=== PATIENT | male | born 1955 | race Caucasian/White ===

== ENCOUNTER 2020-12-07 14:11 | Emergency (ER) | payer MEDICARE, SELFPAY ==
--- NOTE | ~2020-12-07 | CT_ITS ---
EXAMINATION: CT ANGIOGRAM OF THE CHEST WITH AND WITHOUT CONTRAST (CT PULMONARY ANGIOGRAM FOR PE) CLINICAL INFORMATION: Pain COMPARISON: None TECHNIQUE: Prior to contrast administration, noncontrast localization images were obtained. Subsequently, multidetector volumetric imaging was performed from the thoracic inlet to below the diaphragms following the administration of 58 mL Omnipaque 350 intravenous contrast. No contrast reaction reported Sagittal, coronal, and MIP oblique sagittal reformatted images were obtained on the CT workstation, uploaded to PACS, and reviewed. This CT examination was performed using dose optimization techniques as appropriate, variously including the following: *Automated exposure control *Adjustment of mA and/or kV according to patient size (this includes techniques or standardized protocols for targeted exams where dose is matched to indication/reason for exam; i.e. extremities or head) *Use of iterative reconstruction technique Total exam dose-length product 391 mGy-cm FINDINGS: QUALITY OF STUDY/CONTRAST BOLUS: Suboptimal. The IV contrast bolus is too late. The region of interest for triggering the study was positioned too low. The aorta is contrast opacified and there is essentially no contrast opacification of the main pulmonary artery, density 30 Hounsfield units. PULMONARY ARTERIES: Unopacified. THORACIC AORTA: The thoracic aorta is normal in caliber. No aneurysm or dissection. There is conventional aortic arch anatomy. LUNG: Biapical pleural-parenchymal scarring is present. Mild emphysema. PLEURA: No pleural effusion or pneumothorax. MEDIASTINUM: Normal heart size. No pericardial effusion. No hilar or mediastinal lymphadenopathy. No evidence of septal bowing or right heart strain. CHEST WALL/AXILLA: No axillary or internal mammary lymphadenopathy. OSSEOUS STRUCTURES: No acute or suspicious osseous abnormality. UPPER ABDOMEN: Several well-circumscribed low density lesions are seen within the liver, likely simple cysts. There are surgical clips in the gallbladder fossa consistent with prior cholecystectomy. No adrenal mass. No reflux of contrast into the hepatic veins to suggest elevated right heart pressures. CT/CT angio chest PE protocol IMPRESSION: Nondiagnostic study. There is no contrast opacification of the pulmonary arteries to allow for assessment for pulmonary emboli. The study should be repeated if clinically indicated. Normal caliber thoracic aorta. No aneurysm or dissection seen. Biapical pleural-parenchymal scarring. VTE: indeterminate
[2020-12-07 14:18] VITALS: BP 166/85; PULSE 84; RESP 18; TEMP 36.9; O2SAT 100
--- NOTE | 2020-12-07 14:23 | ED.EXTPRO ---
HPI - Extremity Problem General Chief complaint: Extremity Injury, Upper Stated complaint: R ARM/SHOULDER PAINX 1 WK Time Seen by Provider: 12/07/20 14:22 Source: patient Mode of arrival: ambulatory Limitations: no limitations History of Present Illness HPI Narrative: 65-year-old male who denies any significant past medical history states he has had 1 week of pain that is at the superior anchor of the scapula that has been present for the past 1 week with no specific injury. States started a week ago he sort of woke up with that feels like he has a bulge in the area so he went to [facility] he had x-ray of his cervical spine and right shoulder told it might be steroids he subsequently was given muscle relaxants story states he took the steroids without much relief he was afraid to take the steroids because he is due for his 2nd COVID vaccination and he knows not to take steroids prior to this however the pain has become more severe with movement of the right arm and from the scapula angle will shoot to the right shoulder. States that pain became unbearable today. He denies any fever, swelling of the extremities, numbness or weakness of the hand, lower back pain, neck pain or headache. Denies any chest pain or exertional dyspnea. No recent URI. MD Complaint: other (Upper back pain) Onset (ago): week(s) Pain Consistency: constant (Improved with position worsened with certain movements) Location: right Quality: aching Relieving factors: immobilization (Initially got better with immobilization now just hurts continuously) Exacerbating factors: nothing Related Data Previous Rx's Medication Instructions Recorded cyclobenzaprine 5 mg PO TID PRN #14 tab 12/07/20 oxycodone 5 mg PO Q8H PRN 3 Days #10 tab 12/07/20 Allergies Allergy/AdvReac Type Severity Reaction Status Date / Time No Known Allergies Allergy Verified 12/07/20 14:22 Review of Systems Review of Systems: Constitutional: No Weight loss, No Fever, No Chills, No Night Sweats, No Fatigue, No Malaise ENT/Mouth: No Hearing loss, No Ear Pain, No Nasal Congestion, No Sinus Pain, No Hoarseness, No sore throat, No Rhinorrhea, No Swallowing Difficulty Eyes: No Eye Pain, No Swelling, No Redness, No Foreign Body, No Discharge, No Vision Changes Cardiovascular: No Chest Pain, No SOB, No Dyspnea on Exertion, No Orthopnea, No Edema, No Palpitations Respiratory: No Cough, No Sputum, No Wheezing, No Smoke Exposure, No Dyspnea Gastrointestinal: No Nausea, No Vomiting, No Diarrhea, No Constipation, No abdominal Pain, No Hematochezia, No Melena Genitourinary: No Dysuria, No Urinary Frequency, No Hematuria, No Urinary Incontinence, No Urgency, No Flank Pain, No Urinary Flow Changes, No Hesitancy Musculoskeletal: No joint pain, No Myalgias, No Joint Swelling, As noted per HPI Skin: No Skin Lesions, No rash Neuro: No Weakness, No Numbness, No Paresthesias, No Loss of Consciousness, No Dizziness, No Headache Psych: No Anxiety/Panic, No Depression, No Social Issues Heme/Lymph: No Bruising, No Bleeding,No Lymphadenopathy Endocrine: No Polyuria, No Polydipsia, No Temperature Intolerance Yes all other systems are reviewed and are negative COUNT INCLUDES THE [facility] Past Medical History Medical History Arthritis Social History Social History Advance Directives: No Advance Directives Information Provided: No Physical Exam Vital Signs: Vital Signs: Last Vital Signs Temp 98.4 F 12/07/20 14:18 Pulse 66 12/07/20 16:50 Resp 18 12/07/20 16:50 BP 161/76 H 12/07/20 16:50 Pulse Ox 100 12/07/20 16:50 Body Mass Index 20.0 Reviewed Const: General: cooperative and other (Appears uncomfortable right shoulder slightly tilted down. Grimacing); No intoxicated appearing Nutritional Appearance: average body habitus Orientation/consciousness: patient oriented x3 HENMT: Head: Yes normal to inspection Ears: hearing grossly normal bilaterally Eyes: General: appearance normal, both eyes and all related structures Visual Correa: normal visual correa by confrontation Neck: Neck: Yes normal visual inspection, No positive Brudzinski's sign, No positive Kernig's sign and No tender Thyroid: Thyroid normal Chest: Chest palpation & inspection: normal inspection of the chest Resp: Effort & Inspection: normal respiratory effort Auscultation: clear to auscultation bilaterally Cardio: Jugular venous distension: no JVD Rhythm: regular rhythm Heart sounds: S1 normal heart sound present and S2 normal heart sound present GI: Inspection: Yes normal to inspection Palpation (GI): Soft to palpation Percussion: Yes normal to percussion Auscultation: normal bowel sounds : General: Yes no CVA tenderness Back/Spine/Pelvis: Back: no CVA tenderness Cervical Spine: cervical ROM normal Thoracic/Lumbar Spine: thoracic and lumbar spine normal to inspection, No mass, paraspinal muscle tenderness (Directly at and inferior to the angle of the right scapula and paraspinous ) on the right and other (No midline tender palpation, no step-off.) Skin: General skin exam: no rashes or lesions noted Neuro: General: patient oriented x3 Extrem: General: Yes normal to inspection Course Course Course Narrative: 65-year-old male who reports he is relatively her healthy and very active suddenly having right-sided upper back pain over the right scapular region which he has no prior history and is very active walks several miles a day has had follow-up at Orthopedics a week ago given muscle relaxants and steroids which she has reluctantly not taking due to COVID-19 vaccination appearing relatively uncomfortable though exam is strongly suspicious for musculoskeletal etiology given severity will check labs, EKG CTA chest as to make sure this is not referred pain. Reevaluation(s) Reevaluation #1: Feels better after IV morphine and Zofran. Labs overall stable. CT of the chest without acute findings. Will discharge with short course analgesia encourage muscle relaxant and steroid use and follow-up. MDM - Extremity (Nontraumatic) Medical Records Attestation: I reviewed the patient's medical records. Medical records narrative: Medical records requested Lab Data Result diagrams: 12/07/20 15:06 12/07/20 15:06 Labs: Lab Results 12/07/20 12/07/20 12/07/20 Range/Units 15:06 15:06 15:06 WBC 10.3 (4.8-10.8) X10*3/uL RBC 4.47 L (4.60-5.80) X10*6/uL Hgb 14.7 (14.0-18.0) g/dl Hct 43.0 (42-52) % MCV 96.2 (80-98) fL MCH 32.9 (27.0-33.0) pg MCHC 34.2 (31.0-36.0) g/dl RDW 12.7 (11.0-16.0) % Plt Count 180 (160-400) X10*3/uL MPV 10.6 (9.4-12.4) fL Immature Gran % (Auto) 0.3 (0.0-0.4) % Neut % (Auto) 51.4 (45-73) % Lymph % (Auto) 36.2 (20-40) % Granite % (Auto) 7.5 (2-11) % Eos % (Auto) 4.1 H (0-4) % Baso % (Auto) 0.5 (0-2) % Lymph # (Auto) 3.7 (1.2-4.9) X10*3/uL Granite # (Auto) 0.8 (0.1-1.2) X10*3/uL Eos # (Auto) 0.4 (0.0-0.4) X10*3/uL Baso # (Auto) 0.1 (0.0-0.2) X10*3/uL Abs Immat Gran (auto) 0.03 (0.00-0.03) X10*3/uL Absolute Neuts (auto) 5.3 (2.0-8.3) X10*3/uL Absolute Nucleated RBC 0.000 (0.0-0.012) X10*3/uL Nucleated RBC % (auto) 0.0 (0.0-0.2) /100WBC PT 12.0 (10.8-13.0) SEC INR 1.0 (0.9-1.1) APTT 32.0 (24.1-38.0) SEC Sodium 139 (135-145) mmol/L Potassium 4.9 (3.3-5.1) mmol/L Chloride 102 (96-108) mmol/L Carbon Dioxide 28 (22-29) mmol/L Anion Gap 14 (12-20) BUN 18 H (9-16) mg/dL Creatinine 0.84 (0.5-1.4) mg/dL Estim Creat Clear Calc 76.6 Estimated GFR > 60 Random Glucose 139 H (60-115) mg/dL Calcium 8.7 (8.4-10.2) mg/dL Total Bilirubin 0.5 (0.0-1.0) mg/dL AST 19 (5-37) U/L ALT 14 (0-40) U/L Alkaline Phosphatase 82 (39-117) U/L Troponin I High Sens (<3.5-35.0) ng/L Total Protein 6.9 (6.5-8.0) g/dL Albumin 4.3 (3.5-5.0) g/dL 12/07/20 Range/Units 15:06 WBC (4.8-10.8) X10*3/uL RBC (4.60-5.80) X10*6/uL Hgb (14.0-18.0) g/dl Hct (42-52) % MCV (80-98) fL MCH (27.0-33.0) pg MCHC (31.0-36.0) g/dl RDW (11.0-16.0) % Plt Count (160-400) X10*3/uL MPV (9.4-12.4) fL Immature Gran % (Auto) (0.0-0.4) % Neut % (Auto) (45-73) % Lymph % (Auto) (20-40) % Granite % (Auto) (2-11) % Eos % (Auto) (0-4) % Baso % (Auto) (0-2) % Lymph # (Auto) (1.2-4.9) X10*3/uL Granite # (Auto) (0.1-1.2) X10*3/uL Eos # (Auto) (0.0-0.4) X10*3/uL Baso # (Auto) (0.0-0.2) X10*3/uL Abs Immat Gran (auto) (0.00-0.03) X10*3/uL Absolute Neuts (auto) (2.0-8.3) X10*3/uL Absolute Nucleated RBC (0.0-0.012) X10*3/uL Nucleated RBC % (auto) (0.0-0.2) /100WBC PT (10.8-13.0) SEC INR (0.9-1.1) APTT (24.1-38.0) SEC Sodium (135-145) mmol/L Potassium (3.3-5.1) mmol/L Chloride (96-108) mmol/L Carbon Dioxide (22-29) mmol/L Anion Gap (12-20) BUN (9-16) mg/dL Creatinine (0.5-1.4) mg/dL Estim Creat Clear Calc Estimated GFR Random Glucose (60-115) mg/dL Calcium (8.4-10.2) mg/dL Total Bilirubin (0.0-1.0) mg/dL AST (5-37) U/L ALT (0-40) U/L Alkaline Phosphatase (39-117) U/L Troponin I High Sens < 3.5 (<3.5-35.0) ng/L Total Protein (6.5-8.0) g/dL Albumin (3.5-5.0) g/dL Imaging Data CTA chest: Radiologist's impression: [address] [id number] Scan ReportSigned Patient: Carter Sheppard [facility]#: [id number]: 1955cct:[id number]/Sex: 65 / MADM Date: 12/07/20Loc: [address]: Ordering Physician: Thony Nieto NP Date of Service: 12/07/20 Procedure(s): CT angio chest PE protocol Accession Number(s): [id number] cc: Thony Nieto NP~ EXAMINATION: CT ANGIOGRAM OF THE CHEST WITH AND WITHOUT CONTRAST (CT PULMONARY ANGIOGRAM FOR PE) CLINICAL INFORMATION: Pain COMPARISON: None TECHNIQUE: Prior to contrast administration, noncontrast localization images were obtained. Subsequently, multidetector volumetric imaging was performed from the thoracic inlet to below the diaphragms following the administration of 58 mL Omnipaque 350 intravenous contrast. No contrast reaction reported Sagittal, coronal, and MIP oblique sagittal reformatted images were obtained on the CT workstation, uploaded to PACS, and reviewed. This CT examination was performed using dose optimization techniques as appropriate, variously including the following: *Automated exposure control *Adjustment of mA and/or kV according to patient size (this includes techniques or standardized protocols for targeted exams where dose is matched to indication/reason for exam; i.e. extremities or head) *Use of iterative reconstruction technique Total exam dose-length product 391 mGy-cm FINDINGS: QUALITY OF STUDY/CONTRAST BOLUS: Suboptimal. The IV contrast bolus is too late. The region of interest for triggering the study was positioned too low. The aorta is contrast opacified and there is essentially no contrast opacification of the main pulmonary artery, density 30 Hounsfield units. PULMONARY ARTERIES: Unopacified. THORACIC AORTA: The thoracic aorta is normal in caliber. No aneurysm or dissection. There is conventional aortic arch anatomy. LUNG: Biapical pleural-parenchymal scarring is present. Mild emphysema. PLEURA: No pleural effusion or pneumothorax. MEDIASTINUM: Normal heart size. No pericardial effusion. No hilar or mediastinal lymphadenopathy. No evidence of septal bowing or right heart strain. CHEST WALL/AXILLA: No axillary or internal mammary lymphadenopathy. OSSEOUS STRUCTURES: No acute or suspicious osseous abnormality. UPPER ABDOMEN: Several well-circumscribed low density lesions are seen within the liver, likely simple cysts. There are surgical clips in the gallbladder fossa consistent with prior cholecystectomy. No adrenal mass. No reflux of contrast into the hepatic veins to suggest elevated right heart pressures. CT/CT angio chest PE protocol IMPRESSION: Nondiagnostic study. There is no contrast opacification of the pulmonary arteries to allow for assessment for pulmonary emboli. The study should be repeated if clinically indicated. Normal caliber thoracic aorta. No aneurysm or dissection seen. Biapical pleural-parenchymal scarring. VTE: indeterminate Dictated By:LANDRY CARPENTER MDSigned By:<Electronically signed by LANDRY CARPENTER MD in OV>12/07/20 1706 DD/ 1435TD/TT: Other Wood Processing Machine Operator: TF ECG Data Interpretation: Vent. Rate : 070 BPM Atrial Rate : 070 BPM P-R Int : 156 ms QRS Dur : 086 ms QT Int : 382 ms P-R-T Axes : 084 083 083 degrees QTc Int : 412 ms Normal sinus rhythm Normal ECG When compared with ECG of 21-SEP-2002 16:07, No significant change was found Discharge Plan Discharge Clinical Impression: Thoracic back pain Patient Disposition: Home, Self-Care Instructions: Thoracic Back Strain (ED) Additional Instructions: Please start her prednisone as given to her by orthopedic team Follow up as instructed on Wednesday Her blood work as well as a CT scan of your chest did not show any acute abnormalities including no aortic dissection or pulmonary embolism I will give a short course muscle relaxant as well as pain medication please do not drink or drive while taking these medications that can make her sleepy and drowsy Warm compresses Supportive care as discussed Follow up as instructed Return if any concerns worsening symptoms Thank you Prescriptions: New cyclobenzaprine 5 mg tablet 5 mg PO TID PRN (Reason: muscle spasm) Qty: 14 RF: 0 oxycodone 5 mg tablet 5 mg PO Q8H PRN (Reason: pain) 3 Days Qty: 10 RF: 0 Referrals: Alberto James MD [Primary Care Provider] - 1 week Interventions: ED Discharge Assessment Last Done: 12/07/20 18:00 Discharge Date/Time: 12/07/20 18:00
--- NOTE | 2020-12-07 14:35 | ECG_ITS ---
Test Reason : SHOULDER PAIN Blood Pressure : / mmHG Vent. Rate : 070 BPM Atrial Rate : 070 BPM P-R Int : 156 ms QRS Dur : 086 ms QT Int : 382 ms P-R-T Axes : 084 083 083 degrees QTc Int : 412 ms Normal sinus rhythm Normal ECG When compared with ECG of 21-SEP-2002 16:07, No significant change was found Referred By: Thony Nieto Electronically Signed By:GUSTAVO BURGER
[2020-12-07] MEDS: ondansetron HCL 4 MG/2 ML VIAL IVPUSH (15:08)
[2020-12-07] MEDS: Morphine Sulfate 4 MG/ML CARTRIDGE IVPUSH (15:08)
[2020-12-07] MEDS: 0.9 % Sodium Chloride 500 ML IV (15:11)
[2020-12-07 15:18] LABS: MANUAL DIFF FLAG NO
[2020-12-07 15:23] LABS: Basophils Absolute Auto 0.1 X10*3/uL (0.0-0.2); Basophils Percent Auto 0.5 % (0-2); Eosinophils Absolute Auto 0.4 X10*3/uL (0.0-0.4); Eosinophils Percent Auto 4.1 % (0-4); Hemoglobin 14.7 g/dl (14.0-18.0); Imm Gran Abs Auto 0.03 X10*3/uL (0.00-0.03); Imm Gran Pct Auto 0.3 % (0.0-0.4); Lymphocytes Absolute Auto 3.7 X10*3/uL (1.2-4.9); Lymphocytes Percent Auto 36.2 % (20-40); Mean Corpuscular HGB Conc 34.2 g/dl (31.0-36.0); Mean Corpuscular Hemoglobin 32.9 pg (27.0-33.0); Mean Corpuscular Volume 96.2 fL (80-98); Mean Platelet Volume 10.6 fL (9.4-12.4); Monocytes Absolute Auto 0.8 X10*3/uL (0.1-1.2); Monocytes Percent Auto 7.5 % (2-11); Neutrophils Absolute Auto 5.3 X10*3/uL (2.0-8.3); Neutrophils Percent Auto 51.4 % (45-73); Platelet Count 180 X10*3/uL (160-400); Red Blood Count 4.47 X10*6/uL (4.60-5.80); Red Cell Distribution Width 12.7 % (11.0-16.0); White Blood Count 10.3 X10*3/uL (4.8-10.8)
[2020-12-07 15:33] VITALS: BP 161/76; PULSE 76; RESP 18; O2SAT 100
[2020-12-07 15:48] LABS: Troponin-I High Sensitivity < 3.5 ng/L (<3.5-35.0)
[2020-12-07 16:03] LABS: Alanine Aminotransferase 14 U/L (0-40); Albumin Level 4.3 g/dL (3.5-5.0); Alkaline Phosphatase 82 U/L (39-117); Anion Gap 14 (12-20); Aspartate Amino Transferase 19 U/L (5-37); Bilirubin Total 0.5 mg/dL (0.0-1.0); Blood Urea Nitrogen 18 mg/dL (9-16); Calcium 8.7 mg/dL (8.4-10.2); Carbon Dioxide 28 mmol/L (22-29); Chloride 102 mmol/L (96-108); Creatinine Clr Calc Pharmacy 76.6; Estimated Glomerular Filt Rate > 60; Glucose Random 139 mg/dL (60-115); Potassium 4.9 mmol/L (3.3-5.1); Sodium 139 mmol/L (135-145); Total Protein 6.9 g/dL (6.5-8.0)
[2020-12-07 16:50] VITALS: BP 161/76; PULSE 66; RESP 18; O2SAT 100
[2020-12-07] MEDS: iohexoL 350 MG/ML 75 ML INFUS..BTL IV (16:54)
== END 2020-12-07 18:00 | disposition home or self-care (01) ==
PROVIDERS: Nurse Practitioner Primary Care; Emergency Provider Emergency Medicine; PCP Internal Medicine
DX: M54.6 Pain in thoracic spine (principal)
CPT/HCPCS: 36415; 71275; 80053; 84484; 85025; 85610; 85730; 93005; 96361; 96374; 96375; 99284; J2270; J2405; Q9967